=== PATIENT | female | born 1930 | race Caucasian/White ===

== ENCOUNTER 2017-07-26 22:38 | Inpatient (IN) | payer MEDICARE, OTHER ==
[~2017-07-26] VITALS: Ht 172.7 cm; Wt 69.0 kg
[~2017-07-26 22:38] MED LIST: ACETAMINOPHEN325 M1 PO; AMLODIPINE BESYL5 MG PO; AMLODIPINE5 MG PO; ASPIRIN80 MG PO; ATENOLOL25 PO; BACTROBAN2% TP; BG MC; CAR1 PO; CIP250 PO; CIPROFLOXACIN500 M3 PO; CYMBALTA30 M1 PO; DETROL PO; DI PO; DICLOFENAC POTA50 MG PO; DOC-Q-LACE PO; ESCITALOPRAM10 MG PO; HIBICLENS118 ML TOP; ISOSORBIDE DINI10 MG PO; LANTI SQ; LIPI10 PO; LISINOPRIL1 POW PO; LORAZEPAM0.5 PO; LOVASTATIN40 M1 PO; MECLIZINE12.5 MG PO; METFORMIN HCL1000 MG PO; METFORMIN HCL850 MG PO; METP PO; NOVOLIN 70/301.5 M1; NOVOLIN 70/3010 ML SQ; OMEPRAZOLE DR20 M1 PO; POTASSIUM CHLORIDE PO; PRI20 PO; Q-PAP325 MG PO; REG5 PO; TRAMADOL HCL50 M PO; TRAMADOL50 MG PO; TRE400 PO; ZES5 PO; ZOF4 PO; [UNRECOGNIZED DRUG - OTHER] PO; [UNRECOGNIZED DRUG - OTHER] SQ
[2017-07-26 23:34] LABS: CALCIUM 9.2 mg/dL (8.5-10.1); CHLORIDE SERUM 101 mmol/L (98-107); GLUCOSE SERUM 261 mg/dL (74-106); SODIUM SERUM 139 mmol/L (136-145)
[2017-07-26 23:39] LABS: ALBUMIN 3.5 g/dL (3.4-5.0); ALKALINE PHOSPHATASE 79 U/L (46-116); ALT/SGPT 22 U/L (14-59); AST/SGOT 17 U/L (15-37); BILIRUBIN TOTAL 0.3 mg/dL (0.20-1.00); TOTAL PROTEIN, SERUM 7.2 g/dL (6.4-8.2)
[2017-07-26 23:58] LABS: BASOPHIL % 0.6 % (0-2); PLATELET COUNT 226 x10^3mcL (130-400)
[2017-07-26 23:59] LABS: RED CELL DISTRIBUTION WIDTH 14.6 % (11.5-14.5)
[2017-07-27] MEDS ORDERED: TRAMADOL HCL50 MG (01:29)
[2017-07-27] MEDS ORDERED: PENTOXIFYLLINE400 MG (01:29)
[2017-07-27] MEDS ORDERED: ESCITALOPRAM10 M1 (01:30)
[2017-07-27] MEDS ORDERED: MECLIZINE HYDRO25 M1 (01:30)
[2017-07-27] MEDS ORDERED: LISINOPRIL2.5 MG (01:30)
[2017-07-27] MEDS ORDERED: METFORMIN HYDR500 M1 (01:30)
[2017-07-27 02:11] VITALS: BP 131/77
[2017-07-27 02:30] LABS: FREE T4 1.12 ng/dL (0.76-1.46); FREE THYROXINE INDEX 2.5 ug/dL (1.4-4.5)
[2017-07-27 02:45] LABS: CHOLESTEROL/HDL RATIO 3.6; MAGNESIUM 1.6 mg/dL (1.8-2.4); PHOSPHOROUS 2.6 mg/dL (2.5-4.9)
[2017-07-27 02:46] LABS: T3 TOTAL 1.09 ng/mL
[2017-07-27 06:08] LABS: microscopic required? NO
[2017-07-27 06:23] LABS: UA SPECIFIC GRAVITY 1.015 (1.005-1.035); urine erythrocyte NEGATIVE (NEGATIVE)
[2017-07-27 06:53] VITALS: BP 157/66
[2017-07-27 07:25] LABS: CALCIUM 8.6 mg/dL (8.5-10.1); CARBON DIOXIDE 28.8 mmol/L (21-32); CHLORIDE SERUM 102 mmol/L (98-107); CREATININE SERUM 0.9 mg/dL (0.6-1.0); GLUCOSE SERUM 208 mg/dL (74-106); POTASSIUM SERUM 4.5 mmol/L (3.5-5.1); SODIUM SERUM 137 mmol/L (136-145)
[2017-07-27 09:37] VITALS: BP 127/53
[2017-07-27 12:35] VITALS: BP 129/50
[2017-07-27 17:30] VITALS: BP 116/41
[2017-07-27 21:06] VITALS: BP 138/60
[2017-07-28 05:05] VITALS: BP 112/63
[2017-07-28 08:27] LABS: BASOPHIL % 0.3 % (0-2); PLATELET COUNT 199 x10^3mcL (130-400); RED CELL DISTRIBUTION WIDTH 14.3 % (11.5-14.5)
[2017-07-28 08:39] LABS: CALCIUM 8.1 mg/dL (8.5-10.1); CARBON DIOXIDE 28.6 mmol/L (21-32); CHLORIDE SERUM 105 mmol/L (98-107); CREATININE SERUM 0.8 mg/dL (0.6-1.0); GLUCOSE SERUM 150 mg/dL (74-106); MAGNESIUM 2.3 mg/dL (1.8-2.4); POTASSIUM SERUM 4.1 mmol/L (3.5-5.1); SODIUM SERUM 138 mmol/L (136-145)
[2017-07-28 09:56] VITALS: BP 134/58
[2017-07-28 14:17] VITALS: BP 129/63
[2017-07-28 17:28] VITALS: BP 146/51
[2017-07-28 21:14] VITALS: BP 157/53
[2017-07-29 03:10] LABS: BASOPHIL % 0.4 % (0-2); PLATELET COUNT 183 x10^3mcL (130-400)
[2017-07-29 03:12] LABS: RED CELL DISTRIBUTION WIDTH 14.8 % (11.5-14.5)
[2017-07-29 03:19] LABS: CHLORIDE SERUM 108 mmol/L (98-107); CREATININE SERUM 0.7 mg/dL (0.6-1.0); GLUCOSE SERUM 140 mg/dL (74-106); SODIUM SERUM 141 mmol/L (136-145)
[2017-07-29 04:56] VITALS: BP 156/60
[2017-07-29 08:40] VITALS: Ht 172.7 cm; Wt 69.0 kg
[2017-07-29 09:19] VITALS: BP 174/64
[2017-07-29 12:43] VITALS: BP 173/60
[2017-07-29 16:57] VITALS: BP 140/56
[2017-07-29 20:45] VITALS: BP 139/53
[2017-07-30 00:17] VITALS: BP 197/60
[2017-07-30 04:17] VITALS: BP 118/42
[2017-07-30 05:56] LABS: BASOPHIL % 0.2 % (0-2); PLATELET COUNT 185 x10^3mcL (130-400)
[2017-07-30 06:07] LABS: CALCIUM 8.1 mg/dL (8.5-10.1); CHLORIDE SERUM 107 mmol/L (98-107); CREATININE SERUM 0.8 mg/dL (0.6-1.0); GLUCOSE SERUM 168 mg/dL (74-106); POTASSIUM SERUM 4.2 mmol/L (3.5-5.1); SODIUM SERUM 139 mmol/L (136-145)
[2017-07-30 08:00] VITALS: BP 142/74
[2017-07-30 11:53] VITALS: BP 128/55
[2017-07-30 17:23] VITALS: BP 146/44
[2017-07-30 21:45] VITALS: BP 132/79
[2017-07-31 05:48] LABS: BASOPHIL % 0.3 % (0-2); PLATELET COUNT 165 x10^3mcL (130-400); RED CELL DISTRIBUTION WIDTH 14.1 % (11.5-14.5)
[2017-07-31 05:52] LABS: CALCIUM 8.2 mg/dL (8.5-10.1); CARBON DIOXIDE 26.5 mmol/L (21-32); CHLORIDE SERUM 108 mmol/L (98-107); CREATININE SERUM 0.7 mg/dL (0.6-1.0); GLUCOSE SERUM 108 mg/dL (74-106); POTASSIUM SERUM 3.9 mmol/L (3.5-5.1); SODIUM SERUM 140 mmol/L (136-145)
[2017-07-31 06:07] VITALS: BP 134/40
[2017-07-31] MEDS ORDERED: ATORVASTATIN CA40 M1 PO (09:31)
[2017-07-31] MEDS ORDERED: METFORMIN HCL1000 MG PO (09:44)
[2017-07-31] MEDS ORDERED: ZES5 PO (09:46)
[2017-07-31] MEDS ORDERED: COR3 PO (09:46)
[2017-07-31] MEDS ORDERED: ECO81 PO (09:47)
[2017-07-31] MEDS ORDERED: GLU5 PO (09:48)
[2017-07-31 10:12] VITALS: BP 122/53
[2017-07-31] MEDS ORDERED: CLOPIDOGREL75 M1 PO (10:36)
[2017-07-31 13:09] VITALS: BP 127/49
[2017-07-31 13:11] VITALS: BP 127/49
[2017-07-31] MEDS ORDERED: LANTI (13:16)
[2017-07-31 16:38] LABS: BASOPHIL % 0.3 % (0-2); PLATELET COUNT 181 x10^3mcL (130-400); RED CELL DISTRIBUTION WIDTH 14.1 % (11.5-14.5)
[2017-07-31 18:22] VITALS: BP 108/38
== END 2017-07-31 18:45 | disposition home or self-care (01) | DRG 246 ==
LOC: ED 22:38 → DU 07-27 00:55 → IC 07-27 00:55 → DU 07-27 02:35 → IC 07-29 15:44 → DU 07-30 16:15
PROVIDERS: Emergency Medicine; Internal Medicine Interventional Cardiology; Student in an Organized Health Care Education/Training Program; ADMIT Family Medicine
PROC: B2111ZZ Fluoroscopy of Multiple Coronary Arteries using Low Osmolar Contrast (ICD-10-PCS; 2017-07-29)
PROC: B2151ZZ Fluoroscopy of Left Heart using Low Osmolar Contrast (ICD-10-PCS; 2017-07-29)
PROC: 027034Z Dilation of Coronary Artery, One Artery with Drug-eluting Intraluminal Device, Percutaneous Approach (ICD-10-PCS; principal; 2017-07-29 13:30)
PROC: 4A023N7 Measurement of Cardiac Sampling and Pressure, Left Heart, Percutaneous Approach (ICD-10-PCS; 2017-07-29 13:30)
DX: I25.119 Atherosclerotic heart disease of native coronary artery with unspecified angina pectoris (principal); I50.43 Acute on chronic combined systolic (congestive) and diastolic (congestive) heart failure; N17.0 Acute kidney failure with tubular necrosis; K56.7 Ileus, unspecified; D68.69 Other thrombophilia; I11.0 Hypertensive heart disease with heart failure; I10 Essential (primary) hypertension; I08.0 Rheumatic disorders of both mitral and aortic valves; E11.65 Type 2 diabetes mellitus with hyperglycemia; E11.51 Type 2 diabetes mellitus with diabetic peripheral angiopathy without gangrene; E11.42 Type 2 diabetes mellitus with diabetic polyneuropathy; K57.90 Diverticulosis of intestine, part unspecified, without perforation or abscess without bleeding; E78.00 Pure hypercholesterolemia, unspecified; D64.9 Anemia, unspecified; Z79.4 Long term (current) use of insulin; Z68.22 Body mass index [BMI] 22.0-22.9, adult; Z79.84 Long term (current) use of oral hypoglycemic drugs
CPT/HCPCS: CLHCL; 82962; 83880; 84439; 94150; 97110-GP; C1769; C1876; C1887; C1894; J0360; J1327; J1644; J2001; J2250; J2405; J2765; J2916; J3010; J3475; J7030; J7040; J7050; J8597; Q0092; Q9967

== ENCOUNTER 2017-08-05 00:09 | Inpatient (IN) | payer OTHER, MEDICARE ==
[~2017-08-05] VITALS: Ht 167.6 cm; Wt 72.1 kg
[~2017-08-05 00:09] MED LIST changes: +ATORVASTATIN CA40 M1 PO; +CLOPIDOGREL75 M1 PO; +COR3 PO; +ECO81 PO; +ESCITALOPRAM10 M1; +GLU5 PO; +LANTI; +LISINOPRIL2.5 MG; +MECLIZINE HYDRO25 M1; +METFORMIN HYDR500 M1; +PENTOXIFYLLINE400 MG; +TRAMADOL HCL50 MG
[2017-08-05 00:15] VITALS: Ht 167.6 cm; Wt 72.1 kg
[2017-08-05 01:37] LABS: BASOPHIL % 1.7 % (0-2); PLATELET COUNT 396 x10^3mcL (130-400); RED CELL DISTRIBUTION WIDTH 13.7 % (11.5-14.5)
[2017-08-05 02:23] LABS: CALCIUM 9.2 mg/dL (8.5-10.1); CHLORIDE SERUM 103 mmol/L (98-107); GLUCOSE SERUM 186 mg/dL (74-106); POTASSIUM SERUM 3.8 mmol/L (3.5-5.1); SODIUM SERUM 139 mmol/L (136-145)
[2017-08-05 02:27] LABS: ALKALINE PHOSPHATASE 64 U/L (46-116); ALT/SGPT 20 U/L (14-59); AMYLASE 29 U/L (25-115); AST/SGOT 15 U/L (15-37); BILIRUBIN TOTAL 0.53 mg/dL (0.20-1.00); LIPASE 122 IU/L (73-393)
[2017-08-05 02:35] LABS: ALBUMIN 3.2 g/dL (3.4-5.0)
[2017-08-05] MEDS ORDERED: ASPIR 8181 MG PO (03:19)
[2017-08-05] MEDS ORDERED: ATORVASTATIN CA40 M1 PO (03:20)
[2017-08-05] MEDS ORDERED: CLOPIDOGREL75 M1 PO (03:20)
[2017-08-05] MEDS ORDERED: METFORMIN HCL850 MG PO (03:21)
[2017-08-05] MEDS ORDERED: GLIPIZIDE5 M2 PO (03:21)
[2017-08-05] MEDS ORDERED: CARVEDILOL3.125 M1 PO (03:22)
[2017-08-05] MEDS ORDERED: METFORMIN HYD1000 M2 PO (03:22)
[2017-08-05] MEDS ORDERED: ZESTRIL5 MG PO (03:22)
[2017-08-05 05:03] LABS: UA SPECIFIC GRAVITY <=1.005 (1.005-1.035); microscopic required? YES; urine erythrocyte NEGATIVE (NEGATIVE)
[2017-08-05 06:20] LABS: CHOLESTEROL/HDL RATIO 1.9; MAGNESIUM 1.4 mg/dL (1.8-2.4); PHOSPHOROUS 3.6 mg/dL (2.5-4.9)
[2017-08-05 06:21] LABS: FREE T4 1.39 ng/dL (0.76-1.46); FREE THYROXINE INDEX 3.3 ug/dL (1.4-4.5); T4(THYROXINE) 8.6 ug/dL (4.7-13.3)
[2017-08-05 06:22] LABS: T3 TOTAL 1.15 ng/mL
[2017-08-05 06:43] LABS: AMPHETAMINE QUAL UR NONE DETECTED (NEG <=1000)
[2017-08-05 07:01] VITALS: BP 123/57
[2017-08-05 08:35] VITALS: BP 122/56
[2017-08-05 11:12] VITALS: BP 122/56
[2017-08-05 12:18] VITALS: BP 122/60
[2017-08-05 13:31] LABS: IRON 52 ug/dL (50-170); TOTAL IRON BINDING CAPACITY 258 ug/dL (250-450)
[2017-08-05 13:51] LABS: RED BLOOD CELLS 2.73 M/mm3 (4.10-5.10)
[2017-08-05 17:24] VITALS: BP 117/50
[2017-08-05 20:51] VITALS: BP 116/56
[2017-08-06 05:20] VITALS: BP 122/54
[2017-08-06 07:28] LABS: CALCIUM 8.1 mg/dL (8.5-10.1); CARBON DIOXIDE 27.1 mmol/L (21-32); CHLORIDE SERUM 102 mmol/L (98-107); CREATININE SERUM 0.8 mg/dL (0.6-1.0); GLUCOSE SERUM 149 mg/dL (74-106); MAGNESIUM 1.3 mg/dL (1.8-2.4); PHOSPHOROUS 3.6 mg/dL (2.5-4.9); POTASSIUM SERUM 3.9 mmol/L (3.5-5.1); SODIUM SERUM 137 mmol/L (136-145)
[2017-08-06 09:30] LABS: BASOPHIL % 0.3 % (0-2); PLATELET COUNT 341 x10^3mcL (130-400)
[2017-08-06 09:32] LABS: RED CELL DISTRIBUTION WIDTH 15.1 % (11.5-14.5)
[2017-08-06 10:03] VITALS: BP 139/55
[2017-08-06 14:24] VITALS: BP 125/55
[2017-08-06 17:45] VITALS: BP 124/55
[2017-08-06 20:40] VITALS: BP 136/61
[2017-08-07 05:51] VITALS: BP 148/74
[2017-08-07 07:28] LABS: PLATELET COUNT 384 x10^3mcL (130-400)
[2017-08-07 07:34] LABS: RED CELL DISTRIBUTION WIDTH 15.6 % (11.5-14.5)
[2017-08-07 07:42] LABS: CALCIUM 7.7 mg/dL (8.5-10.1); CARBON DIOXIDE 25.3 mmol/L (21-32); CHLORIDE SERUM 97 mmol/L (98-107); CREATININE SERUM 0.9 mg/dL (0.6-1.0); GLUCOSE SERUM 206 mg/dL (74-106); MAGNESIUM 1.8 mg/dL (1.8-2.4); PHOSPHOROUS 3.1 mg/dL (2.5-4.9); POTASSIUM SERUM 4.1 mmol/L (3.5-5.1); SODIUM SERUM 132 mmol/L (136-145)
[2017-08-07 09:31] VITALS: BP 150/75
[2017-08-07 13:20] VITALS: BP 150/75
[2017-08-07 13:24] VITALS: BP 164/69
[2017-08-07] MEDS ORDERED: FERROUS SULFAT325 M2 PO (14:01)
[2017-08-07 21:41] LABS: RED BLOOD CELLS 2.65 M/mm3 (4.10-5.10)
== END 2017-08-07 16:02 | disposition home or self-care (01) | DRG 206 ==
LOC: ED 00:09 → DU 05:15
PROVIDERS: Emergency Medicine; Internal Medicine Gastroenterology; ADMIT Family Medicine
PROC: 0DB68ZX Excision of Stomach, Via Natural or Artificial Opening Endoscopic, Diagnostic (ICD-10-PCS; principal; 2017-08-07 08:00)
DX: T82.847A Pain due to cardiac prosthetic devices, implants and grafts, initial encounter (principal); N17.0 Acute kidney failure with tubular necrosis; I50.43 Acute on chronic combined systolic (congestive) and diastolic (congestive) heart failure; E11.51 Type 2 diabetes mellitus with diabetic peripheral angiopathy without gangrene; E11.65 Type 2 diabetes mellitus with hyperglycemia; E44.1 Mild protein-calorie malnutrition; E83.42 Hypomagnesemia; N39.0 Urinary tract infection, site not specified; I25.10 Atherosclerotic heart disease of native coronary artery without angina pectoris; M19.90 Unspecified osteoarthritis, unspecified site; E78.00 Pure hypercholesterolemia, unspecified; K21.9 Gastro-esophageal reflux disease without esophagitis; F32.9 Major depressive disorder, single episode, unspecified; F41.9 Anxiety disorder, unspecified; I11.0 Hypertensive heart disease with heart failure; H40.9 Unspecified glaucoma; E87.1 Hypo-osmolality and hyponatremia; Y83.8 Other surgical procedures as the cause of abnormal reaction of the patient, or of later complication, without mention of misadventure at the time of the procedure; D64.9 Anemia, unspecified; Z95.5 Presence of coronary angioplasty implant and graft; Z88.0 Allergy status to penicillin; Z90.710 Acquired absence of both cervix and uterus; Z83.3 Family history of diabetes mellitus; Z68.22 Body mass index [BMI] 22.0-22.9, adult; Y92.89 Other specified places as the place of occurrence of the external cause
CPT/HCPCS: 43235; 82962; 83880; 84439; C9113; J0696; J1200; J1610; J1940; J2250; J2310; J2405; J2765; J2916; J3010; J3475; J3490; J7030; J7042

== ENCOUNTER 2017-08-10 01:26 | Inpatient (IN) | payer OTHER, MEDICARE ==
[~2017-08-10] VITALS: Ht 165.1 cm; Wt 77.6 kg
[~2017-08-10 01:26] MED LIST changes: +ASPIR 8181 MG PO; +CARVEDILOL3.125 M1 PO; +FERROUS SULFAT325 M2 PO; +GLIPIZIDE5 M2 PO; +METFORMIN HYD1000 M2 PO; +ZESTRIL5 MG PO
[2017-08-10 03:21] LABS: BASOPHIL % 3.5 % (0-2); PLATELET COUNT 424 x10^3mcL (130-400); RED CELL DISTRIBUTION WIDTH 16.5 % (11.5-14.5)
[2017-08-10 03:39] LABS: CALCIUM 8.2 mg/dL (8.5-10.1); CARBON DIOXIDE 22.6 mmol/L (21-32); CHLORIDE SERUM 92 mmol/L (98-107); CREATININE SERUM 0.9 mg/dL (0.6-1.0); GLUCOSE SERUM 217 mg/dL (74-106); POTASSIUM SERUM 4.4 mmol/L (3.5-5.1); SODIUM SERUM 126 mmol/L (136-145)
[2017-08-10 03:49] LABS: ALKALINE PHOSPHATASE 66 U/L (46-116); ALT/SGPT 19 U/L (14-59); AST/SGOT 17 U/L (15-37); BILIRUBIN TOTAL 0.58 mg/dL (0.20-1.00); C REACTIVE PROTEIN 2.5 mg/dL (<=0.9); TOTAL PROTEIN, SERUM 6.7 g/dL (6.4-8.2)
[2017-08-10 04:11] LABS: ERYTHROCYTE SED RATE 31 mm/hr (0-30)
[2017-08-10 04:14] LABS: CK-MB 1.9 ng/mL (0-3.6)
[2017-08-10 04:16] LABS: FREE T4 1.74 ng/dL (0.76-1.46); FREE THYROXINE INDEX 4.1 ug/dL (1.4-4.5)
[2017-08-10 06:17] VITALS: BP 136/58
[2017-08-10 06:37] VITALS: BP 136/58
[2017-08-10 07:50] LABS: microscopic required? NO
[2017-08-10 07:57] LABS: urine erythrocyte NEGATIVE (NEGATIVE)
[2017-08-10 08:15] LABS: MAGNESIUM 1.4 mg/dL (1.8-2.4); PHOSPHOROUS 2.6 mg/dL (2.5-4.9)
[2017-08-10 08:40] VITALS: BP 136/58
[2017-08-10 08:43] VITALS: Ht 165.1 cm; Wt 77.6 kg
[2017-08-10 10:46] VITALS: BP 120/93
[2017-08-10 13:30] VITALS: BP 130/58
[2017-08-10 21:03] VITALS: BP 115/54
[2017-08-11 03:20] LABS: T3 TOTAL 0.89 ng/mL
[2017-08-11 05:00] VITALS: BP 128/67
[2017-08-11 07:02] LABS: CALCIUM 7.7 mg/dL (8.5-10.1); CARBON DIOXIDE 27.7 mmol/L (21-32); CHLORIDE SERUM 88 mmol/L (98-107); CREATININE SERUM 1.2 mg/dL (0.6-1.0); GLUCOSE SERUM 141 mg/dL (74-106); MAGNESIUM 2.1 mg/dL (1.8-2.4); PHOSPHOROUS 3.8 mg/dL (2.5-4.9); POTASSIUM SERUM 4.1 mmol/L (3.5-5.1)
[2017-08-11 07:09] LABS: BASOPHIL % 0.1 % (0-2); PLATELET COUNT 349 x10^3mcL (130-400); SODIUM SERUM 124 mmol/L (136-145)
[2017-08-11 07:14] LABS: RED CELL DISTRIBUTION WIDTH 18.1 % (11.5-14.5)
[2017-08-11 10:05] VITALS: BP 91/46
[2017-08-11 13:50] VITALS: BP 114/62
[2017-08-11 17:58] VITALS: BP 131/45
[2017-08-11 20:53] VITALS: BP 116/60
[2017-08-11 21:27] VITALS: BP 107/62
[2017-08-12 05:52] VITALS: BP 98/54
[2017-08-12 07:45] LABS: CARBON DIOXIDE 21.5 mmol/L (21-32); CHLORIDE SERUM 87 mmol/L (98-107); CREATININE SERUM 1.2 mg/dL (0.6-1.0); GLUCOSE SERUM 136 mg/dL (74-106); POTASSIUM SERUM 4.1 mmol/L (3.5-5.1)
[2017-08-12 07:50] LABS: SODIUM SERUM 118 mmol/L (136-145)
[2017-08-12 07:57] LABS: BASOPHIL % 0.1 % (0-2); PLATELET COUNT 316 x10^3mcL (130-400)
[2017-08-12 09:41] VITALS: BP 108/54
[2017-08-12 14:04] VITALS: BP 133/61
[2017-08-12 15:04] LABS: CALCIUM 7.6 mg/dL (8.5-10.1); CARBON DIOXIDE 23.9 mmol/L (21-32); CHLORIDE SERUM 87 mmol/L (98-107); CREATININE SERUM 1.1 mg/dL (0.6-1.0); GLUCOSE SERUM 140 mg/dL (74-106); POTASSIUM SERUM 4.4 mmol/L (3.5-5.1)
[2017-08-12 15:10] LABS: SODIUM SERUM 120 mmol/L (136-145)
[2017-08-12 17:45] VITALS: BP 126/64
[2017-08-12 21:45] VITALS: BP 123/63
[2017-08-12 22:04] LABS: CALCIUM 7.6 mg/dL (8.5-10.1); CHLORIDE SERUM 88 mmol/L (98-107); CREATININE SERUM 1.1 mg/dL (0.6-1.0); GLUCOSE SERUM 101 mg/dL (74-106); POTASSIUM SERUM 4.4 mmol/L (3.5-5.1)
[2017-08-12 22:06] LABS: SODIUM SERUM 120 mmol/L (136-145)
[2017-08-13 03:31] LABS: CALCIUM 7.6 mg/dL (8.5-10.1); CHLORIDE SERUM 87 mmol/L (98-107); CREATININE SERUM 1.1 mg/dL (0.6-1.0); GLUCOSE SERUM 136 mg/dL (74-106); POTASSIUM SERUM 4.6 mmol/L (3.5-5.1)
[2017-08-13 03:41] LABS: SODIUM SERUM 120 mmol/L (136-145)
[2017-08-13 05:15] VITALS: BP 124/66
[2017-08-13 09:34] VITALS: BP 135/65
[2017-08-13 10:57] LABS: CALCIUM 7.7 mg/dL (8.5-10.1); CARBON DIOXIDE 19.2 mmol/L (21-32); CHLORIDE SERUM 85 mmol/L (98-107); CREATININE SERUM 0.9 mg/dL (0.6-1.0); GLUCOSE SERUM 182 mg/dL (74-106)
[2017-08-13 11:07] LABS: SODIUM SERUM 119 mmol/L (136-145)
[2017-08-13 12:48] VITALS: BP 138/62
[2017-08-13 16:59] LABS: BASOPHIL % 0.2 % (0-2); PLATELET COUNT 258 x10^3mcL (130-400)
[2017-08-13 17:00] LABS: RED CELL DISTRIBUTION WIDTH 17.7 % (11.5-14.5)
[2017-08-13 17:49] VITALS: BP 111/56
[2017-08-13 18:25] LABS: CALCIUM 7.7 mg/dL (8.5-10.1); CARBON DIOXIDE 22.5 mmol/L (21-32); CHLORIDE SERUM 88 mmol/L (98-107); CREATININE SERUM 1.1 mg/dL (0.6-1.0); GLUCOSE SERUM 138 mg/dL (74-106); POTASSIUM SERUM 4.1 mmol/L (3.5-5.1)
[2017-08-13 18:31] LABS: SODIUM SERUM 120 mmol/L (136-145)
[2017-08-13 21:22] VITALS: BP 112/53
[2017-08-14 06:13] VITALS: BP 138/53
[2017-08-14 07:34] LABS: BASOPHIL % 0.1 % (0-2); PLATELET COUNT 238 x10^3mcL (130-400)
[2017-08-14 08:03] LABS: CALCIUM 7.6 mg/dL (8.5-10.1); CARBON DIOXIDE 21.2 mmol/L (21-32); CHLORIDE SERUM 88 mmol/L (98-107); CREATININE SERUM 0.9 mg/dL (0.6-1.0); GLUCOSE SERUM 121 mg/dL (74-106); POTASSIUM SERUM 4.3 mmol/L (3.5-5.1)
[2017-08-14 08:06] LABS: SODIUM SERUM 120 mmol/L (136-145)
[2017-08-14 08:32] LABS: RED CELL DISTRIBUTION WIDTH 17.8 % (11.5-14.5)
[2017-08-14 10:21] VITALS: BP 140/61
[2017-08-14 13:30] VITALS: BP 124/55
[2017-08-14 17:31] VITALS: BP 124/55
[2017-08-14 18:04] VITALS: BP 127/63
[2017-08-14 21:50] VITALS: BP 136/63
[2017-08-15 05:30] VITALS: BP 149/77
[2017-08-15 06:19] LABS: BASOPHIL % 0.1 % (0-2); PLATELET COUNT 229 x10^3mcL (130-400)
[2017-08-15 06:48] LABS: CALCIUM 8.1 mg/dL (8.5-10.1); CARBON DIOXIDE 20.5 mmol/L (21-32); CHLORIDE SERUM 87 mmol/L (98-107); CREATININE SERUM 0.9 mg/dL (0.6-1.0); GLUCOSE SERUM 133 mg/dL (74-106); POTASSIUM SERUM 4.7 mmol/L (3.5-5.1)
[2017-08-15 07:09] LABS: SODIUM SERUM 118 mmol/L (136-145)
[2017-08-15 09:30] VITALS: BP 149/72
[2017-08-15 13:10] VITALS: BP 144/68
[2017-08-15 21:16] VITALS: BP 130/74
[2017-08-16 01:02] LABS: CALCIUM 7.9 mg/dL (8.5-10.1); CHLORIDE SERUM 86 mmol/L (98-107); GLUCOSE SERUM 140 mg/dL (74-106); POTASSIUM SERUM 4.7 mmol/L (3.5-5.1)
[2017-08-16 01:20] LABS: SODIUM SERUM 119 mmol/L (136-145)
[2017-08-16 05:51] VITALS: BP 145/66
[2017-08-16 09:48] VITALS: BP 147/66
[2017-08-16 11:17] LABS: BASOPHIL % 0.4 % (0-2); PLATELET COUNT 210 x10^3mcL (130-400)
[2017-08-16 11:19] LABS: RED CELL DISTRIBUTION WIDTH 17.3 % (11.5-14.5)
[2017-08-16 11:34] LABS: CALCIUM 8.1 mg/dL (8.5-10.1); CARBON DIOXIDE 23.6 mmol/L (21-32); CHLORIDE SERUM 90 mmol/L (98-107); CREATININE SERUM 0.9 mg/dL (0.6-1.0); GLUCOSE SERUM 158 mg/dL (74-106); POTASSIUM SERUM 4.6 mmol/L (3.5-5.1)
[2017-08-16 11:37] LABS: SODIUM SERUM 121 mmol/L (136-145)
[2017-08-16 14:54] VITALS: BP 138/62
[2017-08-16 16:20] LABS: CALCIUM 7.9 mg/dL (8.5-10.1); CARBON DIOXIDE 22.6 mmol/L (21-32); CHLORIDE SERUM 90 mmol/L (98-107); CREATININE SERUM 0.9 mg/dL (0.6-1.0); GLUCOSE SERUM 203 mg/dL (74-106); POTASSIUM SERUM 4.6 mmol/L (3.5-5.1)
[2017-08-16 16:42] VITALS: BP 136/69
[2017-08-16 16:44] LABS: SODIUM SERUM 122 mmol/L (136-145)
[2017-08-16 22:09] LABS: CALCIUM 8.1 mg/dL (8.5-10.1); CARBON DIOXIDE 23.4 mmol/L (21-32); CHLORIDE SERUM 90 mmol/L (98-107); CREATININE SERUM 0.9 mg/dL (0.6-1.0); GLUCOSE SERUM 219 mg/dL (74-106); POTASSIUM SERUM 4.1 mmol/L (3.5-5.1)
[2017-08-16 22:11] VITALS: BP 142/62
[2017-08-16 22:21] LABS: SODIUM SERUM 123 mmol/L (136-145)
[2017-08-17 03:20] LABS: CARBON DIOXIDE 24.7 mmol/L (21-32); CHLORIDE SERUM 93 mmol/L (98-107); CREATININE SERUM 0.8 mg/dL (0.6-1.0); SODIUM SERUM 126 mmol/L (136-145)
[2017-08-17 03:23] LABS: GLUCOSE SERUM 59 mg/dL (74-106)
[2017-08-17 06:03] VITALS: BP 124/61
[2017-08-17 08:10] LABS: CALCIUM 8.3 mg/dL (8.5-10.1); CARBON DIOXIDE 22.9 mmol/L (21-32); CHLORIDE SERUM 93 mmol/L (98-107); CREATININE SERUM 0.9 mg/dL (0.6-1.0); GLUCOSE SERUM 130 mg/dL (74-106); POTASSIUM SERUM 4.2 mmol/L (3.5-5.1); SODIUM SERUM 125 mmol/L (136-145)
[2017-08-17 10:19] VITALS: BP 154/67
[2017-08-17 12:39] VITALS: BP 140/59
[2017-08-17 13:25] VITALS: BP 145/66
[2017-08-17 16:54] VITALS: BP 143/73
[2017-08-17 21:51] VITALS: BP 134/59
[2017-08-17 23:59] LABS: CALCIUM 7.7 mg/dL (8.5-10.1); CARBON DIOXIDE 27.1 mmol/L (21-32); CHLORIDE SERUM 96 mmol/L (98-107); CREATININE SERUM 0.8 mg/dL (0.6-1.0); GLUCOSE SERUM 207 mg/dL (74-106); POTASSIUM SERUM 4.1 mmol/L (3.5-5.1); SODIUM SERUM 130 mmol/L (136-145)
[2017-08-18 01:43] LABS: CALCIUM 7.7 mg/dL (8.5-10.1); CARBON DIOXIDE 28.1 mmol/L (21-32); CHLORIDE SERUM 97 mmol/L (98-107); CREATININE SERUM 0.8 mg/dL (0.6-1.0); GLUCOSE SERUM 190 mg/dL (74-106); POTASSIUM SERUM 4.1 mmol/L (3.5-5.1); SODIUM SERUM 130 mmol/L (136-145)
[2017-08-18 06:04] VITALS: BP 143/71
[2017-08-18 07:11] LABS: BASOPHIL % 0.4 % (0-2); PLATELET COUNT 213 x10^3mcL (130-400)
[2017-08-18 07:28] LABS: RED CELL DISTRIBUTION WIDTH 18.8 % (11.5-14.5)
[2017-08-18 08:12] LABS: MAGNESIUM 1.5 mg/dL (1.8-2.4); PHOSPHOROUS 2.4 mg/dL (2.5-4.9)
[2017-08-18 10:40] VITALS: BP 150/74
[2017-08-18 11:30] VITALS: BP 147/69
[2017-08-18 15:07] VITALS: BP 126/70
[2017-08-18 17:05] VITALS: BP 142/72
[2017-08-18 21:55] VITALS: BP 153/77
[2017-08-19 01:29] LABS: CALCIUM 8.3 mg/dL (8.5-10.1); CARBON DIOXIDE 25.3 mmol/L (21-32); CHLORIDE SERUM 97 mmol/L (98-107); CREATININE SERUM 0.8 mg/dL (0.6-1.0); GLUCOSE SERUM 224 mg/dL (74-106); POTASSIUM SERUM 4.1 mmol/L (3.5-5.1); SODIUM SERUM 130 mmol/L (136-145)
[2017-08-19 06:25] VITALS: BP 132/68
[2017-08-19 07:45] LABS: CALCIUM 8.3 mg/dL (8.5-10.1); CARBON DIOXIDE 26.1 mmol/L (21-32); CHLORIDE SERUM 97 mmol/L (98-107); CREATININE SERUM 0.8 mg/dL (0.6-1.0); GLUCOSE SERUM 204 mg/dL (74-106); POTASSIUM SERUM 4.1 mmol/L (3.5-5.1); SODIUM SERUM 129 mmol/L (136-145)
[2017-08-19 08:28] LABS: CALCIUM 8.2 mg/dL (8.5-10.1); CARBON DIOXIDE 26.6 mmol/L (21-32); CHLORIDE SERUM 97 mmol/L (98-107); CREATININE SERUM 0.8 mg/dL (0.6-1.0); GLUCOSE SERUM 196 mg/dL (74-106); POTASSIUM SERUM 4.2 mmol/L (3.5-5.1); SODIUM SERUM 129 mmol/L (136-145)
[2017-08-19 10:39] VITALS: BP 152/81
[2017-08-19 11:48] LABS: CHLORIDE SERUM 95 mmol/L (98-107); CREATININE SERUM 0.9 mg/dL (0.6-1.0); GLUCOSE SERUM 237 mg/dL (74-106); POTASSIUM SERUM 4.2 mmol/L (3.5-5.1); SODIUM SERUM 129 mmol/L (136-145)
[2017-08-19 14:38] LABS: CALCIUM 8.2 mg/dL (8.5-10.1); CARBON DIOXIDE 25.1 mmol/L (21-32); CHLORIDE SERUM 95 mmol/L (98-107); CREATININE SERUM 0.9 mg/dL (0.6-1.0); GLUCOSE SERUM 230 mg/dL (74-106); POTASSIUM SERUM 4.1 mmol/L (3.5-5.1); SODIUM SERUM 129 mmol/L (136-145)
[2017-08-19 18:14] VITALS: BP 148/84
[2017-08-19 18:34] VITALS: BP 144/72
[2017-08-19 22:03] VITALS: BP 169/89
[2017-08-20 05:19] VITALS: BP 155/75
[2017-08-20 06:44] LABS: BASOPHIL % 0.3 % (0-2); PLATELET COUNT 235 x10^3mcL (130-400)
[2017-08-20 06:51] LABS: CALCIUM 8.2 mg/dL (8.5-10.1); CARBON DIOXIDE 31.3 mmol/L (21-32); CHLORIDE SERUM 96 mmol/L (98-107); CREATININE SERUM 0.8 mg/dL (0.6-1.0); GLUCOSE SERUM 118 mg/dL (74-106); MAGNESIUM 1.5 mg/dL (1.8-2.4); PHOSPHOROUS 2.9 mg/dL (2.5-4.9); SODIUM SERUM 130 mmol/L (136-145)
[2017-08-20 07:07] LABS: RED CELL DISTRIBUTION WIDTH 18.5 % (11.5-14.5)
[2017-08-20 10:50] VITALS: BP 159/79
[2017-08-20 17:33] VITALS: BP 144/83
[2017-08-20 21:46] VITALS: BP 147/79
[2017-08-21 05:53] VITALS: BP 151/79
[2017-08-21 09:50] VITALS: BP 151/92
[2017-08-21 13:58] VITALS: BP 151/92
[2017-08-21 15:24] VITALS: BP 151/92
[2017-08-21 17:13] VITALS: BP 136/77
[2017-08-21] MEDS ORDERED: DEC150 PO (17:45)
[2017-08-21] MEDS ORDERED: LEVAQUIN750 MG PO (17:48)
[2017-08-21] MEDS ORDERED: SOD1 PO (17:49)
[2017-08-21] MEDS ORDERED: CLINDAMYCIN HY150 M1 PO (17:52)
== END 2017-08-21 19:45 | DRG 137 ==
LOC: ED 01:26 → DU 04:36 → MU 08-18 07:45
PROVIDERS: Family Medicine; Family Medicine Sports Medicine; Specialist; Student in an Organized Health Care Education/Training Program
DX: J69.0 Pneumonitis due to inhalation of food and vomit (principal); N17.0 Acute kidney failure with tubular necrosis; I50.43 Acute on chronic combined systolic (congestive) and diastolic (congestive) heart failure; E44.0 Moderate protein-calorie malnutrition; D68.69 Other thrombophilia; E11.51 Type 2 diabetes mellitus with diabetic peripheral angiopathy without gangrene; E11.65 Type 2 diabetes mellitus with hyperglycemia; I42.0 Dilated cardiomyopathy; E87.1 Hypo-osmolality and hyponatremia; K57.30 Diverticulosis of large intestine without perforation or abscess without bleeding; E83.42 Hypomagnesemia; G89.29 Other chronic pain; F32.9 Major depressive disorder, single episode, unspecified; D64.9 Anemia, unspecified; M62.50 Muscle wasting and atrophy, not elsewhere classified, unspecified site; E87.8 Other disorders of electrolyte and fluid balance, not elsewhere classified; I25.10 Atherosclerotic heart disease of native coronary artery without angina pectoris; Z68.27 Body mass index [BMI] 27.0-27.9, adult; Z95.5 Presence of coronary angioplasty implant and graft; Z79.84 Long term (current) use of oral hypoglycemic drugs; Z88.0 Allergy status to penicillin; K21.9 Gastro-esophageal reflux disease without esophagitis; E78.5 Hyperlipidemia, unspecified; H40.9 Unspecified glaucoma; I11.0 Hypertensive heart disease with heart failure
CPT/HCPCS: 36600; 82962; 83880; 84439; 87046; 87046-59; 92610; 97110-GP; 97116-GP; 97530-GP; J1885; J1940; J1956; J2270; J2405; J3475; J3490; J7030; J7050; J7620; Q0092